=== PATIENT | female | born 1970 | race Caucasian/White ===

== ENCOUNTER → 2017-07-07 | Outpatient (CLI) | payer BC ==
[~2017-07-07] MED LIST: ALBU17AE3 IH; BC PILL PO; BUDE6HFA IH; CALC-80 PO; CETI10CA PO; DCS100C PO; HYDR1TAB75 PO; IBP800T PO; MULT-608 PO
--- NOTE | 2017-07-08 08:58 | Diagnostic Imaging Report ---
Digital mammogram bilateral screening. INDICATION: Screening. COMPARISON: Study was compared to the prior exam of 07/06/2016; 07/11/2015; and 06/04/2014. At this time there are no current complaints. The current study was also evaluated with a Computer Aided Detection (CAD) system. FINDINGS: The fibroglandular tissue in both breasts is heterogeneously dense. This does limit the sensitivity of this exam. Overall, there does not appear to have been any significant change when compared to the prior study. No primary or secondary sign of malignancy is noted. IMPRESSION: There is no radiographic evidence for malignancy. ACR BI-RADS Category 1: Negative. Result letter will be mailed to the patient. Note: At least 10% of breast cancer is not imaged by mammography. Dictated by: Dictated on workstation # [id number]
== END ==
LOC: RAD 15:33
PROVIDERS: ATTEND Obstetrics & Gynecology
DX: Z12.31 Encounter for screening mammogram for malignant neoplasm of breast (principal)
CPT/HCPCS: 77067

== ENCOUNTER → 2017-07-19 | Outpatient (CLI) | payer BC ==
[~2017-07-19] VITALS: Ht 167.6 cm; Wt 93.0 kg
[~2017-07-19] MED LIST changes: +CETI10TA20 PO; +MOME13HF2 IH; +NORG1TAB14 PO
== END ==
LOC: PREOP 07-18 05:43
PROVIDERS: ATTEND Surgery
DX: Z01.818 Encounter for other preprocedural examination (principal); Z12.11 Encounter for screening for malignant neoplasm of colon; Z80.0 Family history of malignant neoplasm of digestive organs

== ENCOUNTER 2017-07-20 08:47 | Day surgery (SDC) | payer BC ==
[~2017-07-20] VITALS: Ht 167.6 cm; Wt 93.0 kg
[~2017-07-20 08:47] MED LIST changes: -NORG1TAB14 PO
--- OUTSIDE RECORDS SUMMARY | 2017-07-20 08:53 | XMS REPORT ---
Author Author ADELINE RODRÍGUEZ [facility] eClinicalWorks Address Unknown Phone Unavailable Care Team Providers Care Farm Advisor Name Role Phone ADELINE RODRÍGUEZ Unavailable Allergies, Adverse Reactions, Alerts Substance Reaction Event Type N.K.D.A. Info Not Available Non Drug Allergy Problems Problem Type Condition Code Onset Dates Condition Status Problem Shortness of breath 786.05 Active Problem Cough 786.2 Active Problem Asthma, unspecified, with (acute) exacerbation 493.92 Active Problem Need for prophylactic vaccination and inoculation, Influenza V04.81 Active Assessment Sinusitis J32.9 Active Medications Medication Code System Code Instructions Start Date End Date Status Dosage Singulair [facility] [address]-68 not defined Augmentin [facility] [address]-30 500-125 MG Orally 2 times a day February 12, 2016 February 26, 2016 as directed Dulera [facility] [address]-73 100-5 mcg/actuation Inhalation Twice a day AprilAug 10, 2016 2 puffs by Inhalation route 2 times per day use daily, rinse mouth after use ProAir HFA [facility] [address]-87 90 mcg/actuation May 19, 2014 inhale 2-4 puffs by Inhalation route every 4 hours as needed PRN shortness of breath/cough Albuterol Sulfate [facility] [address]-55 2.5 mg /3 mL (0.083 %) March 07, 2013 1 Each by Inhalation route every 4 hours for cough and wheeze PRN for wheezing or cough Procedures Procedure Coding System Code Date THER/PROPH/DIAG INJ, SC/IM CPT-4 82362 February 12, 2016 Office Visit, Est Pt., Level 4 CPT-4 62596 February 12, 2016 DEPO MEDROL 80 MG/ML CPT-4 J1040 February 12, 2016 Vital Signs Date/Time: February 12, 2016 Temperature 98 F Weight 221 lbs Height 67 in BMI 34.61 Index Blood Pressure Diastolic 70 mmHg Blood Pressure Systolic 118 mmHg Cardiac Monitoring Heart Rate 72 bpm Results No Known Results Summary Purpose eClinicalWorks Submission
--- OUTSIDE RECORDS SUMMARY | 2017-07-20 08:53 | XMS REPORT ---
Author Author ADELINE RODRÍGUEZ [facility] eClinicalWorks Address Unknown Phone Unavailable Care Team Providers Care Floor Winder Name Role Phone ADELINE RODRÍGUEZ Unavailable Allergies No Known Allergies Problems Problem Type Condition Code Onset Dates Condition Status Problem Shortness of breath 786.05 Active Problem Cough 786.2 Active Problem Asthma, unspecified, with (acute) exacerbation 493.92 Active Problem Need for prophylactic vaccination and inoculation, Influenza V04.81 Active Assessment Encounter for immunization Z23 Active Medications No Known Medications Procedures Procedure Coding System Code Date SINGLE IMMUNIZATION ADMIN CPT-4 66407 Aug 14, 2015 FLUARIX QUAD (3 & UP)-GSK-2014 CPT-4 78707 Aug 14, 2015 Results No Known Results Immunizations Vaccine Administration Date FLUARIX QUAD (3 & UP)-GSK-2014Aug 14, 2015 Summary Purpose eClinicalWorks Submission
--- OUTSIDE RECORDS SUMMARY | 2017-07-20 08:53 | XMS REPORT ---
Author Author ADELINE RODRÍGUEZ [facility] [employer] Address [address] [place] [address] Care Team Providers Care Mattress Filling Machine Tender Name Role Phone ADELINE RODRÍGUEZ Unavailable PROBLEMS Type Condition ICD9-CM Code [id number]-OE Code Onset Dates Condition Status SNOMED Code Problem Asthma, unspecified, with (acute) exacerbation 493.92 Active 517886066 Problem Shortness of breath 786.05 Active 328207536 Assessment Encounter for immunization Z23 Jul, Active 256362166 Problem Cough 786.2 Active 57599471 Problem Need for prophylactic vaccination and inoculation, Influenza V04.81 Active 338976161 ALLERGIES Unknown Allergies SOCIAL HISTORY No smoking Hx information available PLAN OF CARE VITAL SIGNS MEDICATIONS Unknown Medications RESULTS No Results PROCEDURES Procedure Date Ordered Related Diagnosis Body Site FLUARIX QUAD P-FREE 3 AND UP .50 2015Jul 22, 2016 SINGLE IMMUNIZATION ADMIN Jul 22, 2016 IMMUNIZATIONS Vaccine Route Administration Date Status FLUARIX QUAD P-FREE 3 AND UP .50 2015 IM Intramuscular Jul 22, 2016 Administered
--- OUTSIDE RECORDS SUMMARY | 2017-07-20 08:53 | XMS REPORT | Continuity of Care Document ---
Author Author [facility] Address Unknown Phone Unavailable Allergies Active Description Code Type Severity Reaction Onset Reported/Identified Relationship to Patient Clinical Status Yes ferrous sulfate [id number] Drug Allergy Unknown HIVES 07/19/2017 Yes iron [id number] Drug Allergy Unknown HIVES 07/19/2017 Medications Problems Date Dx Coded Attending Type Code Diagnosis Diagnosed By 06/29/2011 Ot 218.1 06/29/2011 Ot 256.4 06/29/2011 Ot 616.0 06/29/2011 Ot 617.9 06/29/2011 Ot 618.4 06/29/2011 Ot 620.2 06/29/2011 Ot 625.6 06/29/2011 Ot 626.2 03/07/2013 493.92 ASTHMA (ACUTE) EXACERBATION 03/07/2013 786.05 SHORTNESS OF BREATH 03/07/2013 786.2 COUGH 03/07/2013 RAJOTTE DAYCARE PROVIDER, ADELINE A 493.92 ASTHMA (ACUTE) EXACERBATION 03/07/2013 RAJOTTE DAYCARE PROVIDER, ADELINE A 786.05 SHORTNESS OF BREATH 03/07/2013 RAJOTTE DAYCARE PROVIDER, ADELINE A 786.2 COUGH 03/07/2013 RAJOTTE DAYCARE PROVIDER, ADELINE A 493.92 ASTHMA (ACUTE) EXACERBATION 03/07/2013 RAJOTTE DAYCARE PROVIDER, ADELINE A 786.05 SHORTNESS OF BREATH 03/07/2013 RAJOTTE DAYCARE PROVIDER, ADELINE A 786.2 COUGH 11/22/2013 RAJOTTE DAYCARE PROVIDER, ADELINE A V04.81 FLU SHOT 11/22/2013 RAJOTTE DAYCARE PROVIDER, ADELINE A V04.81 FLU SHOT 12/04/2014 Ot 285.9 12/04/2014 Ot 618.4 12/04/2014 Ot 626.8 12/04/2014 Ot V72.63 12/04/2014 Ot V74.8 12/04/2014 Ot V76.12 12/04/2014 Ot V76.12 12/04/2014 CELINA LAURENT MD Ot V76.12 03/15/2015 MO TOLEDO, CAMERON Jasmine Ot 780.54 HYPERSOMNIA, UNSPECIFIED 03/15/2015 CAMERON HASSAN MD Ot 786.09 RESPIRATORY ABNORM NEC 07/24/2015 MICHAEL HICKEY MD Ot V76.12 07/07/2016 CELINA LAURENT MD Ot Z12.31 ENCNTR SCREEN MAMMOGRAM FOR MALIGNANT NE 07/21/2016 CELINA LAURENT MD, Ot Z12.31 ENCNTR SCREEN MAMMOGRAM FOR MALIGNANT NE 06/30/2017 Ot V76.12 OTH SCREEN MAMMO-MALIGN NEOPLASM OF LUCY 06/30/2017 CELINA LAURENT MD Ot V76.12 OTH SCREEN MAMMO-MALIGN NEOPLASM OF LUCY 06/30/2017 MICHAEL HICKEY MD Ot V76.12 OTH SCREEN MAMMO-MALIGN NEOPLASM OF LUCY 06/30/2017 CELINA LAURENT MD, Ot Z12.31 ENCNTR SCREEN MAMMOGRAM FOR MALIGNANT NE 07/07/2017 Ot V76.12 OTH SCREEN MAMMO-MALIGN NEOPLASM OF LUCY 07/07/2017 CELINA LAURENT MD Ot V76.12 OTH SCREEN MAMMO-MALIGN NEOPLASM OF LUCY 07/07/2017 MICHAEL HICKEY MD Ot V76.12 OTH SCREEN MAMMO-MALIGN NEOPLASM OF LUCY 07/07/2017 CELINA LAURENT MD Ot Z12.31 ENCNTR SCREEN MAMMOGRAM FOR MALIGNANT NE 07/13/2017 CELINA LAURENT MD, Ot Z12.31 ENCNTR SCREEN MAMMOGRAM FOR MALIGNANT NE 07/19/2017 RAMIRO WEST MD Ot Z01.818 ENCOUNTER FOR OTHER PREPROCEDURAL EXAMIN 07/19/2017 RAMIRO WEST MD Ot Z12.11 ENCOUNTER FOR SCREENING FOR MALIGNANT NE 07/19/2017 RAMIRO WEST MD Ot Z80.0 FAMILY HISTORY OF MALIGNANT NEOPLASM OF 07/19/2017 RAMIRO WEST MD Ot Z01.818 ENCOUNTER FOR OTHER PREPROCEDURAL EXAMIN 07/19/2017 RAMIRO WEST MD Ot Z12.11 ENCOUNTER FOR SCREENING FOR MALIGNANT NE 07/19/2017 RAMIRO WEST MD Ot Z80.0 FAMILY HISTORY OF MALIGNANT NEOPLASM OF Procedures Code [place] [address] THERAPUTIC INJ SQ/IM 03/07/2013 J1040 DEPO MEDROL 80 MG INJ 03/07/2013 45573 OXIMETRY 2012 Results Encounters ACCT No. Visit Date/Time Discharge Status Pt. Type Provider Facility Loc./Unit Complaint [id number] 08/01/2014 15:17:00 08/01/2014 23: 59:59 CLS Outpatient ADELINE RODRÍGUEZ APRN [id number] 11/22/2013 11:08:00 11/22/2013 23: 59:59 CLS Outpatient ADELINE RODRÍGUEZ APRN [id number] 03/07/2013 10:19:00 Document Registration [id number] 07/07/2017 15:33:00 2016 23:59:59 CLS Outpatient CELINA LAURENT MD [facility] RAD ROUTINE [id number] 07/06/2016 09:27:00 2015 23:59:59 CLS Outpatient CELINA LAURENT MD [facility] RAD ROUTINE SCREENING [id number] 07/11/2015 14:52:00 2014 23:59:59 CLS Outpatient MICHAEL HICKEY MD [facility] RAD SCREENING [id number] 03/14/2015 19:58:00 2014 06:40:00 DIS Outpatient CAMERON HASSAN MD [facility] SLEEP FATIGUE [id number] 06/04/2014 14:31:00 2013 23:59:59 CLS Outpatient CELINA LAURENT MD [facility] RAD SCREENING [id number] 07/20/2017 09:30:00 PEN Preadmit RAMIRO WEST MD [facility] ENDO SCREENING [id number] 07/19/2017 14:00:00 ACT Outpatient RAMIRO WEST MD [facility] PREOP COLONOSCOPY [id number] 07/13/2012 15:10:00 Document Registration [id number] 07/08/2011 08:48:00 Document Registration [id number] 06/28/2011 05:32:00 Document Registration [id number] 06/24/2011 15:49:00 Document Registration
--- OUTSIDE RECORDS SUMMARY | 2017-07-20 08:53 | XMS REPORT ---
Author Author ADELINE RODRÍGUEZ [facility] eClinicalWorks Address Unknown Phone Unavailable Care Team Providers Care Microsoft Solutions Architect Name Role Phone ADELINE RODRÍGUEZ CP Unavailable Allergies No Known Allergies Problems Problem Type Condition Code Onset Dates Condition Status Problem Shortness of breath 786.05 Active Problem Cough 786.2 Active Problem Asthma, unspecified, with (acute) exacerbation 493.92 Active Problem Need for prophylactic vaccination and inoculation, Influenza V04.81 Active Assessment Encounter for immunization Z23 Active Medications No Known Medications Procedures Procedure Coding System Code Date SINGLE IMMUNIZATION ADMIN CPT-4 31392 Aug 18, 2015 TDAP (BOOSTRIX) CPT-4 20146 Aug 18, 2015 Results No Known Results Immunizations Vaccine Administration Date TDAP (BOOSTRIX) Aug 18, 2015 Summary Purpose eClinicalWorks Submission
[2017-07-20 09:00] VITALS: BP 123/76
[2017-07-20] MEDS ORDERED: NS IV 500 ML 500 ML ONE ×2 (09:05→11:18)
[2017-07-20] MEDS ORDERED: NS IV 500 ML 500 ML IV PRN (09:18)
[2017-07-20] MEDS ORDERED: NORG1TAB14 PO (09:55)
--- NOTE | 2017-07-20 11:07 | Conscious Sedation/ASA ---
Conscious Sedation Pre-Proced Time Reviewed: 10:45 ASA Class: 2 Airway Mallampati Classification: [place] appropriate class[place] I. II. III, IV Lungs Heart ASA score ASA 1: a normal healthy patient ASA 2: a patient with a mild systemic disease (mid diabetes, controlled hypertension, obesity ASA 3: a patient with a severe systemic disease that limits activity (angina , COPD, prior Myocardial infarction) ASA 4: a patient with an incapacitating disease that is a constant threat to life (CHF, renal failure) ASA 5: a moribund patient not expected to survive 24 hrs. (ruptured aneurysm) ASA 6: a declared brain patient whose organs are being harvested. For emergent operations, add the letter E after the classification Grade 2 Sedation Plan: Analgesia, Amnesia, Plan communicated to team members, Discussed options with patient/fam, Discussed risks with patient/fam Note The patient is an appropriate candidate to undergo the planned procedure, sedation, and anesthesia. The patient immediately re-assessed prior to indication. RAMIRO WEST MD Jul 20, 2017 11:07 am
--- NOTE | 2017-07-20 11:08 | Progress Note-Pre Operative ---
Pre-Operative Progress Note H&P Reviewed The H&P was reviewed, patient examined and no changes noted. Date Seen by Provider: Jul 20, 2017 Time Seen by Provider: 10:45 Date H&P Reviewed: Jul 20, 2017 Time H&P Reviewed: 10:45 Pre-Operative Diagnosis: family hx colon ca RAMIRO WEST MD Jul 20, 2017 11:08 am
[2017-07-20] MEDS ORDERED: HYDROcodone/APAP 5 MG/325 MG (LORTAB) TAB PO PRN (11:15)
[2017-07-20] MEDS ORDERED: ONDANSETRON 4 MG/2 ML (SDV) Z0FRAN IV PRN (11:15)
[2017-07-20] MEDS ORDERED: morphine INJ 10 MG/ML 1ML (SYR OR VIAL) IV PRN (11:15)
[2017-07-20] MEDS ORDERED: MIDAZOLAM 2 MG/2 ML (VERSED) VIAL ONE ×5 (11:15→11:39)
[2017-07-20] MEDS ORDERED: ACETAMINOPHEN 325 MG TABLET/CAPLET (TYLENOL) PO PRN (11:15)
[2017-07-20] MEDS ORDERED: fentaNYL INJECTION 100 MCG/2 ML AMP ONE ×2 (11:15→11:16)
[2017-07-20] MEDS ORDERED: LIDOCAINE JELLY 2% (XYLOCAINE) 5 ML TUBE ONE (11:16)
[2017-07-20] MEDS: fentaNYL INJECTION 100 MCG/2 ML AMP IVP PRN ×4 (11:23→11:46)
[2017-07-20] MEDS: MIDAZOLAM 2 MG/2 ML (VERSED) VIAL IVP PRN ×5 (11:25→11:45)
[2017-07-20] MEDS ORDERED: LIDOCAINE JELLY 2% (XYLOCAINE) 5 ML TUBE TOP ONE (12:15)
--- NOTE | 2017-07-20 12:31 | Progress Note-Post Operative ---
Post-Operative Progess Note Surgeon (s)/Customer Service Specialist (s) Surgeon RAMIRO WEST MD Customer Service Specialist: none Pre-Operative Diagnosis family hx colon ca Post-Operative Diagnosis mild sigmoid diverticulosis Procedure & Operative Findings Date of Procedure 07/20/17 Procedure Performed/Findings Colonoscopy Anesthesia Type CS Estimated Blood Loss Estimated blood loss (mL): minimal Specimens/Packing Specimens Removed none RAMIRO WEST MD Jul 20, 2017 12:31 pm
--- NOTE | 2017-07-20 12:33 | Discharge Inst-Surgical ---
D/C Lap Instructions-JENNA New, Converted, or Re-Newed RX: RX on Chart Follow Up 5 years Activity as tolerated High Fiber Diet 25g or more per day Avoid Alcohol, Caffeine, Spicy [employer] and Acid foods. Drink 64 fluid oz or more of fluids per day. Symptoms to Report: Fever over 101 degree F, Nausea/Vomiting If any problems/questions: Contact your physician or go to Emergency Room RAMIRO WEST MD Jul 20, 2017 12:32 pm
[2017-07-20 12:36] VITALS: BP 119/63
[2017-07-20 12:45] VITALS: BP 114/71
[2017-07-20 12:48] VITALS: BP 114/71
--- NOTE | 2017-07-20 20:11 | OPERATIVE REPORT ---
DATE OF SERVICE: 07/20/2017 ATTENDING PRIMARY CARE PHYSICIAN: . PREOPERATIVE DIAGNOSIS: Family history of colon cancer. POSTOPERATIVE DIAGNOSIS: Mild sigmoid diverticulosis. PROCEDURE: Colonoscopy. SURGEON: Dr. Ramiro West. ANESTHESIA: Conscious sedation. ESTIMATED BLOOD LOSS: Minimal. FINDINGS: Mild sigmoid diverticulosis. DISPOSITION: The patient tolerated the procedure well. INDICATIONS: The patient is a 46-year-old female referred to us for screening colonoscopy. She has not had a colonoscopy up to this point in her life. She does report a positive family history of colon cancer with her father having the disease and being diagnosed at around age 64. She reports some issues of constipation. She does not report any red blood per rectum nor any dark tarry stools. DESCRIPTION OF PROCEDURE: The patient was brought to the endoscopy suite, laid in the left lateral decubitus position. After adequate IV pain and sedative medications and conscious sedation anesthesia, a digital rectal examination was performed. No significant hemorrhoids were identified. Normal sphincter tone was felt and there were no palpable masses. The endoscope was then intubated in the anus and rectum and gently insufflated. The endoscope was then advanced to the valves of the [place] of the rectum where no polyps or any neoplasm identified. We then proceeded through the sigmoid colon where mild sigmoid diverticulosis identified. There were no inflammatory changes to indicate any active diverticulitis. The endoscope was then advanced to the remainder of the descending, transverse, ascending colon and cecum. These segments were normal. There were no polyps or any neoplasms identified throughout the colon or rectum. The endoscope was then slowly withdrawn taking a second look and suctioning residual air with no additional findings. The patient tolerated the procedure well. We will have her continue with medical management with a high fiber diet with at least 30 grams of fiber per day as well as at least 64 fluid ounces of water daily to promote soft stools on a daily basis. We will recommend a followup colonoscopy in approximately 5 years. Job ID: [id number] DocumentID: [id number] Dictated Date: 07/20/2017 12:00:00 Financial Accounting Analyst Date: 07/20/2017 20:11:10 Dictated By: RAMIRO WEST MD
== END 2017-07-20 12:50 | disposition home or self-care (01) ==
LOC: ENDO 08:47
PROVIDERS: ATTEND Surgery
DX: J45.909 Unspecified asthma, uncomplicated; Z80.0 Family history of malignant neoplasm of digestive organs; K57.30 Diverticulosis of large intestine without perforation or abscess without bleeding; Z12.11 Encounter for screening for malignant neoplasm of colon; Z79.899 Other long term (current) drug therapy

== ENCOUNTER → 2018-07-10 | Outpatient (CLI) | payer BC, OTHER ==
[~2018-07-10] MED LIST changes: +NORG1TAB14 PO
--- NOTE | 2018-07-10 18:43 | Diagnostic Imaging Report ---
INDICATION: Routine screening. TECHNIQUE: Comparison is made with prior mammograms from 07/07/2017 and 07/06/2016. TECHNIQUE: 2D and 3D bilateral screening mammography was performed with computer-aided detection (CAD) system. FINDINGS: Scattered fibroglandular densities are identified bilaterally. The parenchymal pattern is stable. No mass or malignant appearing microcalcifications are seen. The axillae are unremarkable. IMPRESSION: No mammographic features suspicious for malignancy are identified. ACR BI-RADS Category 1: Negative. Result letter will be mailed to the patient. Note: At least 10% of breast cancer is not imaged by mammography. Dictated by: Dictated on workstation # [id number]
== END ==
LOC: RAD 13:37
PROVIDERS: ATTEND Obstetrics & Gynecology
DX: Z12.31 Encounter for screening mammogram for malignant neoplasm of breast (principal)
CPT/HCPCS: 77067

== ENCOUNTER → 2019-07-17 | Outpatient (CLI) | payer BC ==
--- NOTE | 2019-07-17 17:25 | Diagnostic Imaging Report ---
INDICATION: Routine screening. COMPARISON is made with prior mammogram 07/10/2018 and 07/07/2017. TECHNIQUE: 2-D and 3-D bilateral screening mammography was performed with CAD. FINDINGS: Scattered fibroglandular densities are identified bilaterally. The parenchymal pattern is stable. No mass or malignant appearing microcalcifications are seen. Axillae are unremarkable. IMPRESSION: BI-RADS category 1. No mammographic features suspicious for malignancy are identified. ACR BI-RADS Category 1: Negative. Result letter will be mailed to the patient. Note: At least 10% of breast cancer is not imaged by mammography. Dictated by: Dictated on workstation # [id number]
== END ==
LOC: RAD 15:11
PROVIDERS: ATTEND Obstetrics & Gynecology
DX: Z12.31 Encounter for screening mammogram for malignant neoplasm of breast (principal)
CPT/HCPCS: 77067

== ENCOUNTER → 2020-06-24 | Outpatient (CLI) | payer BC ==
[~2020-06-24] MED LIST changes: -CETI10TA20 PO; +CETI10TA21 PO
--- NOTE | 2020-06-24 15:57 | Diagnostic Imaging Report ---
PROCEDURE: CT urinary tract, rule out kidney stone. TECHNIQUE: Multiple contiguous axial images were obtained through the abdomen and pelvis without the use of intravenous contrast. Auto Exposure Controls were utilized during the CT exam to meet ALARA standards for radiation dose reduction. INDICATION: Left flank pain and hematuria. COMPARISON: No prior studies are available for comparison. FINDINGS: Lung bases demonstrate a partially calcified nodule in left lower lobe, consistent with a granuloma. The liver and gallbladder are unremarkable. No biliary ductal dilatation is detected. Pancreas and spleen are unremarkable. No adrenal mass is detected. No renal calculi or hydronephrosis are identified. No ureteral calculi are seen. Aorta is nonaneurysmal. Small and large bowel loops are normal in caliber. There is no obstruction. Appendix is visualized and unremarkable in the right lower quadrant. There is diverticulosis of the sigmoid colon but no evidence of acute diverticulitis. Bladder is decompressed. Uterus is surgically absent. No free fluid or fluid collection is identified. Bony structures are nonacute. IMPRESSION: Unremarkable noncontrast CT of the abdomen and pelvis. No urinary tract calculi or obstruction are detected. Dictated by: Dictated on workstation # [id number]
== END ==
LOC: RAD 15:20
PROVIDERS: ATTEND Family Medicine
DX: R31.9 Hematuria, unspecified (principal); R10.9 Unspecified abdominal pain
CPT/HCPCS: 74176

== ENCOUNTER → 2020-11-04 | Outpatient (CLI) | payer BC ==
[~2020-11-04] MED LIST changes: -CETI10TA21 PO; +CETI10TA49 PO
--- NOTE | 2020-11-04 17:25 | Diagnostic Imaging Report ---
INDICATION: Routine screening. COMPARISON is made to prior mammograms of 07/17/2019 and 07/10/2018. 2-D and 3-D bilateral screening mammography was performed with CAD. Scattered fibroglandular densities are identified bilaterally. The parenchymal pattern is stable. No mass or malignant appearing microcalcifications are seen. Axillae are unremarkable. IMPRESSION: BI-RADS Category 1 No mammographic features suspicious for malignancy are identified. ACR BI-RADS Category 1: Negative. Result letter will be mailed to the patient. Note: At least 10% of breast cancer is not imaged by mammography. Dictated by: Dictated on workstation # [id number]
== END ==
LOC: RAD 15:04
PROVIDERS: ATTEND Obstetrics & Gynecology
DX: Z12.31 Encounter for screening mammogram for malignant neoplasm of breast (principal)
CPT/HCPCS: 77063; 77067

== ENCOUNTER → 2021-11-09 | Outpatient (CLI) | payer BC ==
--- NOTE | 2021-11-10 12:51 | Diagnostic Imaging Report ---
Indication: Routine screening. Comparison is made with prior mammogram from 11/04/2020 and 07/17/2019. 2-D and 3-D bilateral screening mammography was performed with CAD. Both breasts are heterogeneously dense, limiting the sensitivity of mammography. Benign circumscribed nodule upper outer left breast is noted posterior depth. No spiculated mass or malignant-appearing microcalcifications are seen. Axillae are unremarkable. IMPRESSION: BI-RADS Category 2 No mammographic features suspicious for malignancy are identified. ACR BI-RADS Category 2: Benign findings. Result letter will be mailed to the patient. Note: At least 10% of breast cancer is not imaged by mammography. Dictated by: Dictated on workstation # [id number]
== END ==
LOC: RAD 15:45
PROVIDERS: ATTEND Obstetrics & Gynecology
DX: Z12.31 Encounter for screening mammogram for malignant neoplasm of breast (principal)
CPT/HCPCS: 77063; 77067

== ENCOUNTER 2022-04-27 05:30 | Outpatient (CLI) | payer BC ==
[~2022-04-27] VITALS: Ht 167.4 cm; Wt 61.3 kg
[2022-04-27] MEDS ORDERED: LOSA25TA41 PO (12:06)
[2022-04-27] MEDS ORDERED: CHOL500044 PO (12:06)
[2022-04-27] MEDS ORDERED: LEVO5TAB28 PO (12:06)
[2022-04-27] MEDS ORDERED: MULT-1136 PO (12:06)
[2022-04-27] MEDS ORDERED: METF-397 PO (12:06)
[2022-04-27] MEDS ORDERED: ESCI5TAB PO (12:06)
[2022-04-27] MEDS ORDERED: RT-ALBUINH INH (12:06)
== END 2022-04-27 12:12 | disposition home or self-care (01) ==
LOC: PREOP 05:30
PROVIDERS: ATTEND Urology
DX: Z01.818 Encounter for other preprocedural examination (principal)

== ENCOUNTER 2022-05-04 06:04 | Day surgery (SDC) | payer BC ==
[2022-05-04] VITALS (11 sets, daily range): BP systolic 95–129; BP diastolic 42–68
[~2022-05-04] VITALS: Ht 167 cm; Wt 106.8 kg
[~2022-05-04 06:04] MED LIST changes: +CHOL500044 PO; +ESCI5TAB PO; +LEVO5TAB28 PO; +LOSA25TA41 PO; +METF-397 PO; +MULT-1136 PO; +RT-ALBUINH INH
[2022-05-04] MEDS ORDERED: LACTATED RINGERS 1,000 ML IV PRN (06:30)
[2022-05-04] MEDS ORDERED: cefTRIAXone 1 GM PRE-MIX 50 ML IV ONE ×3 (06:30→06:55)
[2022-05-04] MEDS: LACTATED RINGERS 1,000 ML IV PRN ×2 (07:13→09:10)
[2022-05-04] MEDS ORDERED: proPOfol 200 MG/20 ML (DIPRIVAN) VIAL IV ONE (07:57)
[2022-05-04] MEDS ORDERED: LIDOCAINE PF 2% 5 ML (XYLOCAINE) VIAL ONE (07:57)
[2022-05-04] MEDS ORDERED: ONDANSETRON 4 MG/2 ML (SDV) Z0FRAN ONE (07:57)
[2022-05-04] MEDS ORDERED: MIDAZOLAM 2 MG/2 ML (VERSED) VIAL ONE (07:57)
[2022-05-04] MEDS ORDERED: ROCURONIUM 50 MG/5 ML (ZEMURON) VIAL IV ONE (07:57)
[2022-05-04] MEDS ORDERED: fentaNYL INJ 100 MCG/2 ML AMP ONE (07:57)
--- NOTE | 2022-05-04 08:03 | Progress Note-Pre Operative ---
Pre-Operative Progress Note H&P Reviewed The H&P was reviewed, patient examined and no changes noted. Date Seen by Provider: May 04, 2022 Time Seen by Provider: 08:02 Date H&P Reviewed: May 04, 2022 Time H&P Reviewed: 08:02 Pre-Operative Diagnosis: CYSTOCELE AND INCONTINENCE HUNTER CALLAHAN MD May 04, 2022 08:02
--- NOTE | 2022-05-04 08:10 | Progress Note-Post Operative ---
Post-Operative Progess Note Surgeon (s)/Magazine Writer (s) Surgeon HUNTER CALLAHAN MD Magazine Writer: NONE Pre-Operative Diagnosis CYSTOCELE AND INCONTINENCE Post-Operative Diagnosis SAME Procedure & Operative Findings Date of Procedure 05/04/22 Procedure Performed/Findings ANTERIOR REPAIR, PVS, AND CYSTOSCOPY Anesthesia Type GENERAL Estimated Blood Loss Estimated blood loss (mL): LESS THAN 50cc Specimens/Packing Specimens Removed NONE TO PATH Packin GM ESTRACE VAG PACK HUNTER CALLAHAN MD May 04, 2022 08:10
[2022-05-04] MEDS ORDERED: MILK OF MAGNESIA 400 MG/5 ML 30 ML UDC PO PRN (08:15)
[2022-05-04] MEDS ORDERED: ESTRADIOL VAGINAL CREAM 42.5 GM (ESTRACE) VG ONE (08:30)
[2022-05-04] MEDS ORDERED: LIDOCAINE/EPI 1%-1:100,000 (XYLOCAINE) 20ML ONE (08:30)
[2022-05-04] MEDS ORDERED: MEPERIDINE (DEMEROL) INJ 50 MG/ML IVP ONE (10:00)
[2022-05-04] MEDS ORDERED: morphine INJ 10 MG/ML 1ML (SYR OR VIAL) IVP ONE (10:00)
[2022-05-04] MEDS ORDERED: HYDROmorphone 2 MG/ML VIAL (DILAUDID) IV ONE (10:00)
[2022-05-04] MEDS ORDERED: ONDANSETRON 4 MG/2 ML (SDV) Z0FRAN IVP PRN (10:00)
[2022-05-04] MEDS: LACTATED RINGERS 1,000 ML IV SCH ×2 (10:07→11:27)
--- NOTE | 2022-05-04 10:16 | Anesthesia-General Post-Op ---
General Patient Condition Mental Status/LOC: Same as Preop Cardiovascular: Satisfactory Nausea/Vomiting: Absent Respiratory: Satisfactory Pain: Controlled Complications: Absent Post Op Complications Complications None Follow Up Care/Instructions Patient Instructions None needed. Anesthesia/Patient Condition Patient Condition Patient is doing well, no complaints, stable vital signs, no apparent adverse anesthesia problems. No complications reported per nursing. DEAN BHAGAT CRNA May 04, 2022 10:16
[2022-05-04] MEDS ORDERED: SEVOFLURANE (ULTANE) 15 ML INHAL SOLN ONE (10:20)
--- NOTE | 2022-05-04 14:14 | OPERATIVE REPORT ---
DATE OF SERVICE: 05/04/2022 PREOPERATIVE DIAGNOSIS: Cystocele and incontinence. POSTOPERATIVE DIAGNOSES: Cystocele and incontinence. OPERATION PERFORMED: Anterior repair, pubovaginal sling and cystoscopy. SURGEON: Deacon Callahan MD ANESTHESIA: General. COMPLICATIONS: None. DESCRIPTION OF PROCEDURE: Under satisfactory general anesthesia, the patient in extended lithotomy position, genitalia were prepped and draped in the usual sterile fashion. Koroma was inserted and draining the bladder. The anterior vaginal wall was infiltrated with 2% lidocaine with epinephrine to make a vertical incision in the anterior vaginal wall. The mucosa was dissected free from the underlying fascia. The fascia was approximated with several interrupted 2-0 Vicryl giving excellent support to the bladder. The Desara 2 pubovaginal sling was passed on both sides using the described technique. The sling was sitting nicely under the mid urethra with no tension, twisting and passage of a curved hemostat easily between it and underlying tissue. I removed the Koroma catheter and performed cystoscopy to confirm the integrity of the bladder, ureteral orifices, urethra and presence of the sling under the mid urethra. I left the bladder half full, removed the cystoscope, performed abdominal Valsalva maneuver manually it was negative. The catheter was reinserted draining clear fluid. Estimated blood loss was less than 50 mL, none of which was replaced. The excess vaginal mucosa was excised and then approximated with a running 2-0 Vicryl Rapide type. A 2 grams Estrace vaginal pack was inserted. Needle, sponge, instrument count correct x2. The patient tolerated the procedure and anesthesia well and was sent to recovery room in stable condition. Job ID: [id number] DocumentID: [id number] Dictated Date: 05/04/2022 09:40:11 Amusement Park Ride Mechanic Date: 05/04/2022 14:13:47 Dictated By: DEACON CALLAHAN MD
[2022-05-05 01:30] VITALS: BP 111/57
[2022-05-05 05:00] VITALS: BP 121/61
[2022-05-05 07:30] VITALS: BP 131/67
[2022-05-05] MEDS: LACTATED RINGERS 1,000 ML IV SCH (07:39)
--- NOTE | 2022-05-05 11:21 | Progress Note - Urology ---
Progress Note-Urology Progress Notes/Assess & Plan Progress/Assessment & Plan VOIDED WELL. PVR 16. DRY. NO COMPLAINTS. DISCHARGE WITH INSTRUCTIONS. Final Diagnosis CYSTOCELE AND INCONTINENCE HUNTER CALLAHAN MD May 05, 2022 11:21
--- NOTE | 2022-05-05 11:25 | Discharge Inst-Urology ---
Discharge Inst-Urology Reconcile Patient Problems Problems Reviewed?: Yes Final Diagnosis CYSTOCELE AND INCONTINENCE Patient Instructions/Follow Up Plan/Assessment/Instructions Please make appointment to been seen in office PRIOR to her next surgery. REST till then including heavy lifting, straining or sex Keep bowels soft and moving. Showers no bath Increase oral fluids for 48 hours and then as needed. Diet as tolerated. Please call RX for Cipro 250 BID for 5 days to her pharmacy If questions or concerns contact your physician Or seek help at emergency department. HUNTER CALLAHAN MD May 05, 2022 11:25
== END 2022-05-05 12:30 | disposition home or self-care (01) ==
LOC: SDC 06:04 → WS 10:53 → SDC 05-05 12:30
PROVIDERS: ATTEND Urology
DX: N81.10 Cystocele, unspecified (principal); R32 Unspecified urinary incontinence
CPT/HCPCS: 57240; 57288; 87081; 94664; C1771